=== PATIENT | female | born 1970 | race African-American/Black ===

== ENCOUNTER 2019-01-07 18:23 | Inpatient (IN) | payer OTHER ==
[2019-01-07 23:27] VITALS: BMI 17.6
--- NOTE | 2019-01-08 01:57 | HP ---
"CIWA Score - Admission Criteria [facility] Guidelines: Admission for Medically Managed Detox: Requires at least one of the followin. CIWA greater than 12 2. Seizures within the past 24 hours 3. Delirium tremens within the past 24 hours 4. Hallucinations within the past 24 hours 5. Acute intervention needed for co occurring medical disorder 6. Acute intervention needed for co occurring psychiatric disorder 7. Severe withdrawal that cannot be handled at a lower level of care (continued vomiting, continued diarrhea, abnormal vital signs) requiring intravenous medication and/or fluids 8. Admission ROS [facility] Chief Complaint: Here for rehab Allergies/Adverse Reactions: Allergies Allergy/AdvReac Type Severity Reaction Status Date / Time No Known Allergies Allergy Verified 01/07/19 23:01 History of Present Illness: 48 yo presents w/ hx crack/cocaine use seeking rehab. Crack/cocaine use began at age 13. Current use is $200/day. Nicotine use began at age 12. Now down to 2 cig/day (from 19) Denies alcohol or other illicit drug use. Utox: + NICA; HCG: Neg JOSE: 0.0 Seizures years ago. Was on Dilantin which was d/c 10 yrs ago. Denies blackouts or overdoses. Longest sobriety 3 yeaR IN 2008. PMHx: HIV+; IDDM, HTN MHHx: Schozo-affective, Depression. PTSD: On Traz and Seroq: Denies thoughts of harming self or others. SHx: Domiciled. Unemployed (on SSI). Denies legal issues Search Terms: Quita Gamez, 1970 Search Date: 01/08/2019 01:54:52 AM The Drug Utilization Report below displays all of the controlled substance prescriptions, if any, that your patient has filled in the last twelve months. The information displayed on this report is compiled from pharmacy submissions to the Department, and accurately reflects the information as submitted by the pharmacies. This report was requested by: Sury Cancino | Reference #: [id number] There are no results for the search terms that you entered. Exam Limitations: No Limitations - Ebola screening Have you traveled outside of the country in the last 21 days: No (N) Have you had contact with anyone from an Ebola affected area: No Have you been sick,other than usual withdrawal symptoms: No Do you have a fever: No - Review of Systems Constitutional: Unintentional Wgt. Loss (r/t medical issues) EENT: reports: Blurred Vision, Dental Problems (cavities.) Respiratory: reports: No Symptoms reported Cardiac: reports: No Symptoms Reported GI: reports: No Symptoms Reported : reports: No Symptoms Reported Musculoskeletal: reports: No Symptoms Reported Integumentary: reports: No Symptoms Reported Neuro: reports: No Symptoms reported Endocrine: reports: No Symptoms Reported Hematology: reports: Other (HIV +) Psychiatric: reports: Judgement Intact, Orientated x3, Depressed (Denies thoughts of harming self or others.) Patient History - Patient Medical History Hx Asthma: No Hx Chronic Obstructive Pulmonary Disease (COPD): No Hx Cardiac Disorders: No Hx Hypertension: No Hx Seizures: Yes Hx Diabetes: Yes Hx Gastrointestinal Disorders: No Hx Genitourinary Disorders: No Hx Sexually Transmitted Disorders: No Hx Renal Disease (ESRD): No Hx Depression: Yes Hx Suicide Attempt: No Hx Schizophrenia: Yes - Patient Surgical History Past Surgical History: No Hx Neurologic Surgery: No Hx Cataract Extraction: No Hx Cardiac Surgery: No Hx Lung Surgery: No Hx Breast Surgery: No Hx Breast Biopsy: No Hx Abdominal Surgery: No Hx Appendectomy: No Hx Cholecystectomy: No Hx Genitourinary Surgery: No Hx Section: No Hx Orthopedic Surgery: No Anesthesia Reaction: No - PPD History Previous Implant?: Yes (TB Gold Test ordered) Documented Results: Negative w/proof Implanted On Prior [facility] Admission?: Yes PPD to be Administered?: No - Reproductive History Patient is a Female of Child Bearing Age (11 -55 yrs old): Yes Last Menstrual Period: 07/05/06 (menopause) Patient : No - Smoking Cessation Smoking history: Current every day smoker Have you smoked in the past 12 months: Yes Aproximately how many cigarettes per day: 2 Hx Chewing Tobacco Use: No Initiated information on smoking cessation: Yes 'Breaking Loose' booklet given: 01/08/19 - Substance & Tx. History Hx Alcohol Use: No Hx Substance Use: Yes Substance Use Type: Cocaine Hx Substance Use Treatment: Yes (J-[facility] in 2011) - Substances abused Crack Substance route: Smoking Frequency: Daily Amount used: $200 Age of first use: 13 Date of last use: 12/31/18 Admission Physical Exam [facility] - Vital Signs Vital Signs: Vital Signs - 24 hr 01/07/19 01/08/19 22:56 01:40 Temperature 97.7 F 97.7 F Pulse Rate 84 81 Respiratory 20 18 Rate Blood Pressure 115/76 115/76 - Physical General Appearance: Yes: No Apparent Distress, Thin HEENTM: Yes: EOMI, Hearing grossly Normal, Normocephalic, Normal Voice, CRISTOFER, Lessions (One white round shiny 2 mm lesion on (L) tonsil. Tonsils stage 2. No other lesions, no increased erythema, no exudate.) Respiratory: Yes: Lungs Clear, Normal Breath Sounds, No Respiratory Distress Neck: Yes: No masses,lesions,Nodules, Supple Breast: Yes: Breast Exam Deferred Cardiology: Yes: Regular Rhythm, S1, S2 Abdominal: Yes: Non Tender, Flat, Soft, Increased Bowel Sounds Genitourinary: Yes: Within Normal Limits Back: Yes: Normal Inspection Musculoskeletal: Yes: full range of Motion, Gait Steady Extremities: Yes: Normal Capillary Refill Neurological: Yes: supervisor waterworks II-XII NML intact, Fully Oriented, Alert, Motor Strength 5/5, Normal Response Integumentary: Yes: Normal Color, Dry (very dry.), Warm, Other (Scattered scratch chaves on chest. Flat, circular, darker brown skin discoloration on chest , abd and back.) - Diagnostic (1) Essential (primary) hypertension Current Visit: Yes Status: Chronic (2) IDDM (insulin dependent diabetes mellitus) Current Visit: Yes Status: Chronic (3) HIV (human immunodeficiency virus infection) Current Visit: Yes Status: Chronic Qualifiers: HIV symptom status: unspecified Qualified Code(s): B20 - Human immunodeficiency virus [HIV] disease (4) Tinea pedis Current Visit: Yes Status: Chronic Qualifiers: Laterality: bilateral Qualified Code(s): B35.3 - Tinea pedis (5) Itch of skin Current Visit: Yes Status: Chronic (6) Cocaine dependence Current Visit: Yes Status: Chronic Comment: Crack use (7) Nicotine abuse Current Visit: Yes Status: Chronic (8) Underweight Current Visit: Yes Status: Chronic Cleared for Admission [facility] - Detox or Rehab Claeared for Rehab Admission: Yes Breathalyzer - Breathalyzer Breathalyzer: 0 Urine Drug Screen - Test Device Lot number: [id number] Expiration date: 10/04/20 - Control Is test valid?: Yes - Results Drug screen NEGATIVE: Yes Urine drug screen results: NICA-Cocaine Inpatient Rehab Admission - Rehab Decision to Admit Inpatient rehab admission?: Yes - Initial Determination Are CD services needed?: Yes Free of communicable disease: Yes Not in need of hospitalization: Yes - Rehab Admission Criteria Previous failed treatment: Yes Poor recovery environment: Yes Comorbidities: Yes Lacks judgement: Yes Patient is meeting Inpatient Rehab admission criteria:: Yes"
[2019-01-08] MEDS ORDERED: NICOTINE POLACRILEX 2 MG GUM BC PRN (02:20)
[2019-01-08] MEDS ORDERED: MAG HYDROX/AL HYDROX/SIMETH 30 ML UNIT-DOSE CUP PO PRN (02:20)
[2019-01-08] MEDS ORDERED: MENTHOL/PHENOL 1 EACH UD MM PRN (02:20)
[2019-01-08] MEDS ORDERED: LOPERAMIDE HCL 2 MG CAPSULE PO PRN (02:20)
[2019-01-08] MEDS ORDERED: MAGNESIUM CITRATE 300 ML BOTTLE PO PRN (02:20)
[2019-01-08] MEDS ORDERED: guaiFENesin 200 MG/10 ML 10 ML UNIT-DOSE CUPS PO PRN (02:20)
[2019-01-08] MEDS ORDERED: MAGNESIUM HYDROX 2400MG/30ML ORAL SUSPENSION 30 ML CUP PO PRN (02:20)
[2019-01-08] MEDS ORDERED: IBUPROFEN 400 MG TABLET (FP) PO PRN (02:20)
[2019-01-08] MEDS ORDERED: hydrOXYzine PAMOATE 25 MG CAPSULE (FP) PO PRN (02:20)
[2019-01-08] MEDS ORDERED: P-EPHED 60MG/TRIPROLIDI 2.5MG TABLET PO PRN (02:20)
[2019-01-08] MEDS ORDERED: ACETAMINOPHEN 325 MG TABLET (FP) PO PRN (02:20)
[2019-01-08] MEDS ORDERED: MINERAL OIL/PETROLAT/WATER TOPICAL CREAM 454 GM JAR TP PRN (02:23)
[2019-01-08] MEDS ORDERED: COLLOIDAL OATMEAL 1 BAR EACH TP PRN (02:23)
[2019-01-08] MEDS ORDERED: INSULIN (NOVOLOG) ASPART 100 UNITS/ML 10ML VIAL ONE ×2 (07:14→12:00)
[2019-01-08] MEDS: INSULIN SLIDING SCALE (NOVOLOG) 1 VIAL SQ SCH ×4 (07:30→21:24)
[2019-01-08] MEDS ORDERED: PATIENT'S OWN MEDICATION (NON-FORMULARY) (Darunavir/Cobicistat [Prezcobix 800 Mg-150 Mg Ta PO SCH ×2 (10:00)
[2019-01-08] MEDS ORDERED: PATIENT'S OWN MEDICATION (NON-FORMULARY) (Emtricitabine/Tenofov Alafenam [Descovy 200-25 M PO SCH ×2 (10:00)
[2019-01-08] MEDS: TOLNAFTATE 1% CREAM 15 GM TUBE TP SCH ×2 (10:08→22:59)
[2019-01-08] MEDS: PRENATAL VITAMINS W/ FOLIC ACID TABLET (FP) PO SCH (10:08)
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
[2019-01-08] MEDS: INSULIN (LEVEMIR) 100 UNITS/ML UNITS SQ SCH (21:24)
[2019-01-08] MEDS ORDERED: INSULIN GLARGINE HUM REC ANLOG 35 UNIT SQ SCH ×2 (22:00)
[2019-01-08] MEDS ORDERED: MELATONIN 5 MG TABLETS PO PRN (22:00)
[2019-01-08] MEDS ORDERED: [UNRECOGNIZED DRUG - OTHER] SQ SCH ×2 (22:00)
--- NOTE | 2019-01-08 22:35 | PN ---
S Progress Note Note: EKG reviewed. Vital Signs - 24 hr 01/07/19 01/08/19 22:56 01:40 Temperature 97.7 F 97.7 F Pulse Rate 84 81 Respiratory 20 18 Rate Blood Pressure 115/76 115/76 Laboratory Last Values POC Glucometer 347 UNITS (80-120) 01/08/19 21:20 POC Urine HCG, Qual Negative 01/08/19 01:42 Seen earlier today by Psych. Note reviewed and plan was to start on Seroquel 200 mg PO HS and Trazodone 50 mg PO HS. Will prescribe, based on psych eval.
[2019-01-08] MEDS: traZODone HCL 50 MG TABLET (FP) PO SCH (22:58)
[2019-01-08] MEDS: QUEtiapine FUMARATE 100 MG TABLET (FP) PO SCH (22:58)
[2019-01-08] MEDS: THIAMINE HCL 100 MG TABLET (FP) PO SCH (22:58)
[2019-01-09] MEDS: INSULIN SLIDING SCALE (NOVOLOG) 1 VIAL SQ SCH ×4 (07:21→22:22)
[2019-01-09] MEDS: PATIENT'S OWN MEDICATION (NON-FORMULARY) (Darunavir/Cobicistat [Prezcobix 800 Mg-150 Mg Ta PO SCH ×2 (07:22)
[2019-01-09] MEDS: PATIENT'S OWN MEDICATION (NON-FORMULARY) (Emtricitabine/Tenofov Alafenam [Descovy 200-25 M PO SCH ×2 (07:22)
[2019-01-09] MEDS: TOLNAFTATE 1% CREAM 15 GM TUBE TP SCH ×2 (10:33→22:22)
[2019-01-09] MEDS: PRENATAL VITAMINS W/ FOLIC ACID TABLET (FP) PO SCH (10:33)
--- NOTE | 2019-01-09 11:15 | PN ---
[facility] Progress Note Note: Patient is refusing blood work.
[2019-01-09 11:47] VITALS: BP 117/72; PULSE 70; TEMP 98.6
--- NOTE | 2019-01-09 12:29 | EKG ---
Test Reason : Blood Pressure : / mmHG Vent. Rate : 083 BPM Atrial Rate : 083 BPM P-R Int : 162 ms QRS Dur : 086 ms QT Int : 374 ms P-R-T Axes : 070 074 073 degrees QTc Int : 439 ms NORMAL SINUS RHYTHM NORMAL ECG NO PREVIOUS ECGS AVAILABLE Confirmed by AILYN BRENNER, TOOTIE ([id number]) on 01/09/2019 12:29:40 PM Referred By: Ahsan Fish Confirmed By:TOOTIE ROBERTSON MD
--- NOTE | 2019-01-09 15:23 | PN ---
S Progress Note Note: Patient refusing blood draw, CXR, QFT. Labs were drawn at [facility] and in the report from them. A CXR was done at [facility].
[2019-01-09] MEDS ORDERED: INSULIN (NOVOLOG) ASPART 100 UNITS/ML 10ML VIAL ONE (17:16)
[2019-01-09 18:56] LABS: HYALINE CASTS 6 /lpf (0-8); URINE APPEARANCE CLEAR; URINE BACTERIA 18.5 /hpf (NEGATIVE); URINE BILIRUBIN NEGATIVE (NEGATIVE); URINE COLOR YELLOW; URINE GLUCOSE (UA) TRACE (NEGATIVE); URINE KETONE NEGATIVE (NEGATIVE); URINE LEUK ESTERASE 3+ (NEGATIVE); URINE NITRITE NEGATIVE (NEGATIVE); URINE PROTEIN NEGATIVE (NEGATIVE); URINE RBC 2 /hpf (0-4); URINE UROBILINOGEN 0.2 mg/dL (0.2-1.0); URINE WBC 91 /hpf (0-5)
[2019-01-09] MEDS ORDERED: PT OWN MED DRAWER 7, Y5N ONE (19:08)
[2019-01-09] MEDS: INSULIN (LEVEMIR) 100 UNITS/ML UNITS SQ SCH (22:21)
[2019-01-09] MEDS: traZODone HCL 50 MG TABLET (FP) PO SCH (22:21)
[2019-01-09] MEDS: QUEtiapine FUMARATE 100 MG TABLET (FP) PO SCH (22:22)
[2019-01-09] MEDS: THIAMINE HCL 100 MG TABLET (FP) PO SCH (22:23)
[2019-01-10] MEDS ORDERED: PATIENT'S OWN MEDICATION (NON-FORMULARY) (Emtricitabine/Tenofov Alafenam [Descovy 200-25 M PO SCH (07:00)
[2019-01-10] MEDS ORDERED: PATIENT'S OWN MEDICATION (NON-FORMULARY) (Darunavir/Cobicistat [Prezcobix 800 Mg-150 Mg Ta PO SCH (07:00)
== END 2019-01-09 19:00 | disposition left against medical advice (07) | DRG 770 ==
LOC: YASAS 18:23 → Y5N 01-08 02:46 → Y3W 01-08 03:23 → UNDODISIN 01-08 04:00 → Y3W 01-08 08:59
PROVIDERS: ADMIT Surgery; ATTEND Surgery
PROC: HZ42ZZZ Group Counseling for Substance Abuse Treatment, Cognitive-Behavioral (ICD-10-PCS; principal; 2019-01-08)
DX: F10.20 Alcohol dependence, uncomplicated (principal); F14.20 Cocaine dependence, uncomplicated; F17.210 Nicotine dependence, cigarettes, uncomplicated; F19.282 Other psychoactive substance dependence with psychoactive substance-induced sleep disorder; F25.9 Schizoaffective disorder, unspecified; F43.10 Post-traumatic stress disorder, unspecified; Z21 Asymptomatic human immunodeficiency virus [HIV] infection status; I10 Essential (primary) hypertension; E11.9 Type 2 diabetes mellitus without complications; Z79.4 Long term (current) use of insulin; B35.3 Tinea pedis; L29.8 Other pruritus; Z59.0 Homelessness
CPT/HCPCS: 81003; 81025; 82962; 93005; 93010